=== PATIENT | female | born 1955 | race Caucasian/White ===

== ENCOUNTER 2022-12-07 12:50 | Outpatient (CLI) | payer MEDICARE, BC | END 2022-12-07 12:51 | disposition home or self-care (01) | LOC: CSHRAD 12:50 | PROVIDERS: ATTEND Internal Medicine | DX: J90 Pleural effusion, not elsewhere classified (principal) | CPT/HCPCS: 71046 ==

== ENCOUNTER 2023-05-29 16:43 | Outpatient (CLI) | payer MEDICARE, BC | END 2023-05-29 16:44 | disposition home or self-care (01) | LOC: CSHRAD 16:43 | PROVIDERS: ATTEND Internal Medicine | DX: M25.552 Pain in left hip (principal); M25.562 Pain in left knee; M17.12 Unilateral primary osteoarthritis, left knee; M47.816 Spondylosis without myelopathy or radiculopathy, lumbar region | CPT/HCPCS: 72110 ==